=== PATIENT | male | born 1995 | race African-American/Black ===

== ENCOUNTER 2017-10-28 22:31 | Emergency (ER) | payer OTHER ==
[2017-10-29 01:28] VITALS: BP 139/76
== END 2017-10-29 01:29 | disposition home or self-care (01) ==
LOC: ED 22:31
DX: J02.8 Acute pharyngitis due to other specified organisms (principal); F17.200 Nicotine dependence, unspecified, uncomplicated; Z71.6 Tobacco abuse counseling
CPT/HCPCS: 99406

== ENCOUNTER 2018-02-21 20:31 | Emergency (ER) | payer OTHER ==
[~2018-02-21] VITALS: Ht 177.8 cm; Wt 77.1 kg
[2018-02-21 20:34] VITALS: Ht 177.8 cm; Wt 77.1 kg
[2018-02-21 21:27] VITALS: BP 122/89
== END 2018-02-21 21:27 | disposition home or self-care (01) ==
LOC: ED 20:31
DX: S93.401A Sprain of unspecified ligament of right ankle, initial encounter (principal); X50.1XXA Overexertion from prolonged static or awkward postures, initial encounter; Y93.67 Activity, basketball; Y92.89 Other specified places as the place of occurrence of the external cause; Y99.8 Other external cause status
CPT/HCPCS: Q0092

== ENCOUNTER 2019-01-06 20:07 | Emergency (ER) | payer OTHER ==
[~2019-01-06] VITALS: Ht 172.7 cm; Wt 78.9 kg
[2019-01-06 20:41] VITALS: Ht 172.7 cm; Wt 78.9 kg
[2019-01-06 23:21] VITALS: BP 131/68
== END 2019-01-06 23:21 | disposition home or self-care (01) ==
LOC: ED 20:07
DX: J06.9 Acute upper respiratory infection, unspecified (principal)
CPT/HCPCS: 87804

== ENCOUNTER 2019-02-18 16:52 | Emergency (ER) | payer OTHER ==
[~2019-02-18] VITALS: Ht 175.3 cm; Wt 76.7 kg
[2019-02-18 16:55] VITALS: Ht 175.3 cm; Wt 76.7 kg
[2019-02-18 18:49] LABS: AMPHETAMINE QUAL UR NONE DETECTED (See below)
[2019-02-18 19:14] VITALS: BP 127/88
== END 2019-02-18 19:14 | disposition home or self-care (01) ==
LOC: ED 16:52
PROVIDERS: Emergency Medicine
DX: M94.0 Chondrocostal junction syndrome [Tietze] (principal)
CPT/HCPCS: 36415

== ENCOUNTER 2019-03-06 14:46 | Emergency (ER) | payer OTHER ==
[~2019-03-06] VITALS: Ht 175.3 cm; Wt 78.0 kg
[2019-03-06 14:57] VITALS: Ht 175.3 cm; Wt 78.0 kg
[2019-03-06 16:31] VITALS: BP 132/83
== END 2019-03-06 16:31 | disposition home or self-care (01) ==
LOC: ED 14:46
DX: M54.5 Low back pain (principal); R10.9 Unspecified abdominal pain; R51 Headache; R03.0 Elevated blood-pressure reading, without diagnosis of hypertension

== ENCOUNTER 2019-05-18 00:54 | Emergency (ER) | payer OTHER ==
[~2019-05-18] VITALS: Ht 175.3 cm; Wt 77.1 kg
[2019-05-18 00:59] VITALS: Ht 175.3 cm; Wt 77.1 kg
[2019-05-18 01:46] LABS: BASOPHIL % 0.3 % (0-2); PLATELET COUNT 156 x10^3mcL (130-400); RED CELL DISTRIBUTION WIDTH 13.2 % (11.5-14.5)
[2019-05-18 01:51] LABS: CALCIUM 9.6 mg/dL (8.5-10.1); CARBON DIOXIDE 21.7 mmol/L (21-32); CHLORIDE SERUM 103 mmol/L (98-107); CREATININE SERUM 1.2 mg/dL (0.7-1.3); GFR1 > 60 mL/min; GLUCOSE SERUM 120 mg/dL (74-106); POTASSIUM SERUM 3.5 mmol/L (3.5-5.1); SODIUM SERUM 138 mmol/L (136-145)
[2019-05-18 01:56] LABS: ALBUMIN 4.5 g/dL (3.4-5.0); ALKALINE PHOSPHATASE 61 U/L (46-116); ALT/SGPT 35 U/L (16-63); AST/SGOT 13 U/L (15-37); BILIRUBIN TOTAL 0.54 mg/dL (0.20-1.00); LIPASE 49 IU/L (73-393)
[2019-05-18 02:14] LABS: TOTAL PROTEIN, SERUM 8.3 g/dL (6.4-8.2)
[2019-05-18 02:35] LABS: microscopic required? NO
[2019-05-18 02:41] LABS: urine erythrocyte NEGATIVE (NEGATIVE)
[2019-05-18 05:34] VITALS: BP 131/80
== END 2019-05-18 05:34 | disposition home or self-care (01) ==
LOC: ED 00:54
PROVIDERS: Emergency Medicine
DX: M54.5 Low back pain (principal); R07.89 Other chest pain; R51 Headache
CPT/HCPCS: 85378; J1885; J7030

== ENCOUNTER 2019-07-17 00:31 | Emergency (ER) | payer OTHER ==
[~2019-07-17] VITALS: Ht 175.3 cm; Wt 74.8 kg
[2019-07-17 00:33] VITALS: Ht 175.3 cm; Wt 74.8 kg
[2019-07-17 03:53] VITALS: BP 105/67
== END 2019-07-17 03:53 | disposition home or self-care (01) ==
LOC: ED 00:31
DX: R07.89 Other chest pain (principal); M79.10 Myalgia, unspecified site; Z98.890 Other specified postprocedural states
CPT/HCPCS: Q0092

== ENCOUNTER 2019-08-26 00:26 | Emergency (ER) | payer OTHER ==
[~2019-08-26] VITALS: Ht 172.7 cm; Wt 77.7 kg
[2019-08-26 00:34] VITALS: Ht 172.7 cm; Wt 77.7 kg
[2019-08-26 01:17] VITALS: BP 119/74
== END 2019-08-26 01:17 | disposition home or self-care (01) ==
LOC: ED 00:26
DX: J40 Bronchitis, not specified as acute or chronic (principal); Z98.890 Other specified postprocedural states

== ENCOUNTER 2019-12-14 03:47 | Emergency (ER) | payer OTHER ==
[~2019-12-14] VITALS: Ht 175.3 cm; Wt 76.7 kg
[2019-12-14 03:59] VITALS: Ht 175.3 cm; Wt 76.7 kg
[2019-12-14 04:40] LABS: BASOPHIL % 0.3 % (0-2); PLATELET COUNT 181 x10^3mcL (130-400); RED CELL DISTRIBUTION WIDTH 12.6 % (11.5-14.5)
[2019-12-14 04:46] LABS: CALCIUM 9.2 mg/dL (8.5-10.1); CARBON DIOXIDE 31.4 mmol/L (21-32); CHLORIDE SERUM 98 mmol/L (98-107); GFR1 > 60 mL/min; GLUCOSE SERUM 115 mg/dL (74-106); POTASSIUM SERUM 3.4 mmol/L (3.5-5.1); SODIUM SERUM 138 mmol/L (136-145)
[2019-12-14 04:50] LABS: ALBUMIN 4.3 g/dL (3.4-5.0); ALKALINE PHOSPHATASE 59 U/L (46-116); ALT/SGPT 35 U/L (16-63); AST/SGOT 15 U/L (15-37); BILIRUBIN TOTAL 1.2 mg/dL (0.20-1.00); LIPASE 60 IU/L (73-393)
[2019-12-14 05:41] VITALS: BP 150/86
== END 2019-12-14 05:41 | disposition home or self-care (01) ==
LOC: ED 03:47
PROVIDERS: Emergency Medicine
DX: K52.9 Noninfective gastroenteritis and colitis, unspecified (principal)
CPT/HCPCS: J2405; J7030

== ENCOUNTER 2019-12-19 14:39 | Emergency (ER) | payer OTHER ==
[~2019-12-19] VITALS: Ht 175.3 cm; Wt 76.7 kg
[2019-12-19 14:52] VITALS: BP 154/93; Ht 175.3 cm; Wt 76.7 kg
== END 2019-12-19 15:17 | disposition home or self-care (01) ==
LOC: ED 14:39
DX: Z13.89 Encounter for screening for other disorder (principal); R11.2 Nausea with vomiting, unspecified

== ENCOUNTER 2020-08-14 22:38 | Emergency (ER) | payer OTHER ==
[~2020-08-14] VITALS: Ht 175.3 cm; Wt 80.3 kg
[2020-08-14 22:48] VITALS: Ht 175.3 cm; Wt 80.3 kg
[2020-08-15 00:03] VITALS: BP 126/76
== END 2020-08-15 00:03 | disposition home or self-care (01) ==
LOC: ED 22:38
DX: S93.601A Unspecified sprain of right foot, initial encounter (principal); X58.XXXA Exposure to other specified factors, initial encounter; Y93.89 Activity, other specified; Y92.810 Car as the place of occurrence of the external cause; Y99.8 Other external cause status